=== PATIENT | female | born 1985 | race African-American/Black ===

== ENCOUNTER → 2017-03-02 | Outpatient (CLI) | payer BC ==
--- NOTE | ~2017-03-02 | US128 ---
[id number] [address] [address] [id number] O MR#: [id number] Acc #: [id number] NAME: ABI SON : 1985 SEX: F STUDY DATE/TIME: 03/02/2017 13:49 UNIT: [facility] ROOM: STUDY DESCRIPTION: Thyroid Attending Physician: Darin Chavez M.D. Referring Physician: Darin Chavez M.D. Ordering Physician: Porter Brock M.D. Primary Care Physician: Porter Brock M.D. MEDICAL IMAGING REPORT This report is preliminary unless electronic signature is present. EXAM Thyroid ultrasound. DATE OF EXAM 03/02/2017 HISTORY Enlarged thyroid on physical examination, 02/15/2017, thyromegaly, goiter. FINDINGS The right thyroid lobe measures 4.5 cm x 1.8 cm x 1.5 cm while the left lobe measured 4.1 cm x 1.5 cm x 1.2 cm. The isthmus measured 4 mm in the AP direction. Both thyroid lobes are homogeneous in echotexture and demonstrate no cystic or solid mass lesions. There are no masses extrinsic to the thyroid. Normal blood flow is seen throughout both thyroid lobes. IMPRESSION Normal thyroid ultrasound. Dictated by... Arnold Rice M.D. THIS IS AN ELECTRONICALLY VERIFIED REPORT Arnold Rice M.D. at 03/06/2017 9:19 AM HUEY/federico TD: 03/02/2017 19:57 JOB #: [id number] MEDICAL IMAGING REPORT Page 1 of 1
== END | disposition home or self-care (01) ==
LOC: SGUS 13:38
DX: E01.0 Iodine-deficiency related diffuse (endemic) goiter (principal)
CPT/HCPCS: 76536